=== PATIENT | female | born 1995 | race Caucasian/White ===

== ENCOUNTER 2024-02-11 15:25 | Emergency (ER) | payer OTHER ==
[2024-02-11 16:37] VITALS: BP 117/78; PULSE 91; RESP 20; TEMP 98; BMI 29.7
[2024-02-11] MEDS ORDERED: FAMOTIDINE 20 MG/50 ML IVPB 20 MG/50 ML MG IVPB ONE (16:48)
[2024-02-11] MEDS: ACETAMINOPHEN 1000 MG/100 ML BAG IVPB ONE (17:42)
[2024-02-11 17:55] LABS: BASO % 0.8 % (0-2.0); EOS % 0.4 % (0-4.5); HEMATOCRIT 41.5 % (32.4-45.2); HEMOGLOBIN 13.4 GM/dL (10.7-15.3); LYMPH % 25.3 % (8-40); MCH 27.7 pg (25.7-33.7); MCHC 32.4 g/dl (32.0-36.0); MEAN CELL VOLUME 85.4 fl (80-96); MONO % 6.3 % (3.8-10.2); NEUT % 67.2 % (42.8-82.8); PLATELET COUNT 267 10^3/uL (134-434); RBC 4.85 M/mm3 (3.60-5.2); RDW 12.9 % (11.6-15.6); WHITE BLOOD COUNT 5.3 K/mm3 (4.0-10.0)
[2024-02-11 17:56] LABS: HCG,QUALITATIVE URINE Positive
[2024-02-11 17:57] LABS: URINE APPEARANCE CLOUDY; URINE BILIRUBIN NEGATIVE (NEGATIVE); URINE COLOR YELLOW; URINE GLUCOSE (UA) NEGATIVE (NEGATIVE); URINE KETONE TRACE (NEGATIVE); URINE LEUK ESTERASE NEGATIVE (NEGATIVE); URINE NITRITE NEGATIVE (NEGATIVE); URINE PROTEIN TRACE (NEGATIVE)
[2024-02-11 18:02] LABS: PROTHROMBIN TIME (PATIENT) 11.3 SEC (9.7-13.0)
[2024-02-11 18:05] LABS: ACTIVATED PTT 36.6 SECONDS (25.2-36.5)
[2024-02-11 18:16] LABS: POTASSIUM 3.7 mmol/L (3.5-5.1)
[2024-02-11 18:18] LABS: CALCIUM 9.7 mg/dL (8.5-10.1)
[2024-02-11 18:19] LABS: ALBUMIN 4.5 g/dl (3.4-5.0); BLOOD UREA NITROGEN 10.8 mg/dL (7-18)
[2024-02-11 18:22] LABS: CREATININE 0.8 mg/dL (0.55-1.3)
[2024-02-11 18:23] LABS: BILIRUBIN,TOTAL 0.4 mg/dL (0.2-1); TOT PROT 8.7 g/dl (6.4-8.2)
== END 2024-02-11 20:53 | disposition left against medical advice (07) ==
LOC: JER 15:25
DX: R10.31 Right lower quadrant pain (principal)
CPT/HCPCS: 36415; 76817-TC; 80053; 81003; 83690; 84702; 84703; 85025; 85610; 85730; 87086; 99284-25

== ENCOUNTER 2024-02-16 18:13 | Emergency (ER) | payer OTHER ==
[2024-02-16 18:23] VITALS: BP 123/59; PULSE 88; RESP 18; TEMP 98.7; BMI 29.7
[2024-02-16 19:12] LABS: BASO % 0.3 % (0-2.0); EOS % 0.3 % (0-4.5); HEMATOCRIT 39.7 % (32.4-45.2); HEMOGLOBIN 12.7 GM/dL (10.7-15.3); LYMPH % 9.1 % (8-40); MCH 28.1 pg (25.7-33.7); MCHC 32.1 g/dl (32.0-36.0); MEAN CELL VOLUME 87.4 fl (80-96); MEAN PLT VOLUME 8.3 fl (7.5-11.1); MONO % 3.5 % (3.8-10.2); NEUT % 86.8 % (42.8-82.8); PLATELET COUNT 267 10^3/uL (134-434); RBC 4.54 M/mm3 (3.60-5.2); RDW 12.6 % (11.6-15.6); WHITE BLOOD COUNT 11.8 K/mm3 (4.0-10.0)
[2024-02-16 19:17] LABS: EPI CELLS 19 /uL (0-25.1); HYALINE CASTS 0 /uL (0-3.1); URINE APPEARANCE TURBID; URINE BACTERIA 100 /uL (0-1359); URINE BILIRUBIN NEGATIVE (NEGATIVE); URINE COLOR RED; URINE GLUCOSE (UA) NEGATIVE (NEGATIVE); URINE KETONE NEGATIVE (NEGATIVE); URINE LEUK ESTERASE 1+ (NEGATIVE); URINE NITRITE NEGATIVE (NEGATIVE); URINE PROTEIN 2+ (NEGATIVE); URINE RBC 11713 /uL (0-23.9); URINE WBC 155 /uL (0-25.8)
[2024-02-16 19:53] LABS: POTASSIUM 3.5 mmol/L (3.5-5.1)
[2024-02-16 19:54] LABS: CALCIUM 9.1 mg/dL (8.5-10.1)
[2024-02-16 19:55] LABS: BLOOD UREA NITROGEN 11.2 mg/dL (7-18)
[2024-02-16 19:58] LABS: CREATININE 0.8 mg/dL (0.55-1.3)
== END 2024-02-16 20:56 | disposition home or self-care (01) ==
LOC: JER 18:13
DX: O03.9 Complete or unspecified spontaneous abortion without complication (principal)
CPT/HCPCS: 36415; 76830-TC; 80048; 81003; 84702; 84703; 85025; 86850; 86900; 86901; 87086; 99284-25